=== PATIENT | male | born 1980 | race Caucasian/White ===

== ENCOUNTER 2017-12-06 19:11 | Emergency (ER) | payer MEDICAID ==
[~2017-12-06] VITALS: Ht 208.3 cm; Wt 147.4 kg
[2017-12-06 20:26] VITALS: BP 114/82
== END 2017-12-06 19:56 | disposition home or self-care (01) ==
LOC: ER 19:11
DX: G89.29 Other chronic pain (principal); M54.9 Dorsalgia, unspecified; Z76.0 Encounter for issue of repeat prescription